=== PATIENT | male | born 1980 | race Caucasian/White ===

== ENCOUNTER 2018-09-17 11:27 | Emergency (ER) | payer MEDICAID ==
[~2018-09-17] VITALS: Ht 167.6 cm; Wt 81.6 kg
--- NOTE | 2018-09-17 11:31 | NUR ---
PT AMBULATES TO BED 2
[2018-09-17 11:34] VITALS: BP 133/78
--- NOTE | 2018-09-17 11:41 | NUR ---
XRAY AT BEDSIDE
--- NOTE | 2018-09-17 11:42 | NUR ---
PT. CAME INTO THE ED W/ C/O RIGHT HAND PAIN S/P MECHANICAL FALL YESTERDAY AND ATTEMPTED TO BREAK FALL WITH HANDS OUT DISCOLORATION AND SWELLING NOTED TO RT HAND . 07/04 PAIN THAT IS NONRADIATING. ER MD MADE AWARE. FAMILY AT BEDSIDE. WILL CONTINUE TO MONITOR.
[2018-09-17 12:13] VITALS: BP 133/78
== END 2018-09-17 12:12 | disposition home or self-care (01) ==
LOC: MED 11:27
DX: S63.91XA Sprain of unspecified part of right wrist and hand, initial encounter (principal); J45.909 Unspecified asthma, uncomplicated; Z88.8 Allergy status to other drugs, medicaments and biological substances; W18.30XA Fall on same level, unspecified, initial encounter; Y93.89 Activity, other specified; Y92.89 Other specified places as the place of occurrence of the external cause; Y99.8 Other external cause status
CPT/HCPCS: 73130; 99283

== ENCOUNTER 2019-05-15 06:10 | Emergency (ER) | payer MEDICAID, OTHER ==
[~2019-05-15] VITALS: Ht 167.6 cm; Wt 81.6 kg
[2019-05-15 06:16] VITALS: BP 118/76
[2019-05-15] MEDS ORDERED: predniSONE 20 MG TAB PO ONE (06:20)
[2019-05-15] MEDS ORDERED: ALBUTEROL SULFATE/IPRATROPIU 3 ML SOL IH ONE (06:20)
[2019-05-15] MEDS ORDERED: ALBUTEROL 0.083% 2.5 MG/3 ML NEBU INH ONE (06:20)
--- NOTE | 2019-05-15 06:21 | NUR ---
PT TAKEN TO BED 1
--- NOTE | 2019-05-15 06:32 | NUR ---
Respiratory Therapist at bedside for respiratory intervention
--- NOTE | 2019-05-15 06:37 | NUR ---
Note rioone in EDM - 05/15/19 at 0641 by MEDDI 38 Y/O MALE BIB SELF. PT STATES HX ASTHMA. ASTHMA STARTED FLARING UP AT 20:00 LAST NIGHT. HE HAS INHALER BUT OUT OF NEBULIZER MEDS AT HOME. NO RELIEF FROM INHALER AT THIS TIME. O2SAT 98% @ RA. AUDIBLE BILAT EXPIRATORY WHEEZING. SOB/DYSPNEA PRESENT. VSS. HX: ASTHMA
--- NOTE | 2019-05-15 06:41 | NUR ---
38 Y/O MALE BIB SELF. PT STATES HX ASTHMA. ASTHMA STARTED FLARING UP AT 20:00 LAST NIGHT. HE HAS INHALER BUT OUT OF NEBULIZER MEDS AT HOME. NO RELIEF FROM INHALER AT THIS TIME. O2SAT 98% @ RA. AUDIBLE BILAT EXPIRATORY WHEEZING. SOB/DYSPNEA PRESENT. VSS. HE ALSO RATES A 5/10 OF SORE LEFT CHEST/SIDE PAIN. HX: ASTHMA
--- NOTE | 2019-05-15 07:07 | NUR ---
PATIENT RATES 0/10 PAIN AND THAT THE SIDE JUST FEELS "SORE"
--- NOTE | 2019-05-15 07:31 | NUR ---
Pt report given to AMI DAVIS. Transfer of care at this time.
--- NOTE | 2019-05-15 07:32 | NUR ---
PT AAO X4. FULL CLEAR SPEECH. 02 SATURATION 98% RA. EVEN AND UNLABORED BREATHING, CLEAR EQUAL DAT LUNGS UPON AUSCULTATION. NO SIGNS AND SYMPTOMS OF DISTRESS NOTED.
--- NOTE | 2019-05-15 07:40 | NUR ---
DR BUSTILLO AT BEDSIDE FOR PT EVALUATION
[2019-05-15 08:16] VITALS: BP 120/78
--- NOTE | 2019-05-15 08:16 | NUR ---
Patient discharged with v/s stable. Written and verbal after care instructions given and explained. Patient alert, oriented and verbalized understanding of instructions. Ambulatory with steady gait. All questions addressed prior to discharge. ID band removed. Patient advised to follow up with PMD. Rx of PREDNISONE, ALBUTEROL SULFATE 0.083% DESTINY, PREMIER VALUE CETIRIZINE HYDROCHLORIDE given. Patient educated on indication of medication including possible reaction and side effects. Opportunity to ask questions provided and answered.
== END 2019-05-15 08:16 | disposition home or self-care (01) ==
LOC: MED 06:10
DX: J45.901 Unspecified asthma with (acute) exacerbation (principal); Z88.8 Allergy status to other drugs, medicaments and biological substances
CPT/HCPCS: 94640; 99284; J7512; J7613; J7620; 99283

== ENCOUNTER 2019-09-22 04:02 | Emergency (ER) | payer OTHER ==
[~2019-09-22] VITALS: Ht 167.6 cm; Wt 81.6 kg
[2019-09-22 04:15] VITALS: BP 113/79
--- NOTE | 2019-09-22 04:15 | NUR ---
TO BED # 04 AMBULATORY
--- NOTE | 2019-09-22 04:31 | NUR ---
Dr. Echavarria examining patient.
--- NOTE | 2019-09-22 04:33 | NUR ---
Harsh max in [facility] - 09/22/19 at 0516 by [facility] Respiratory Therapist at bedside for respiratory intervention.
[2019-09-22] MEDS ORDERED: methylPREDNISolone SS 125 MG/2 ML VIAL IM ONE (04:35)
[2019-09-22] MEDS ORDERED: ALBUTEROL SULFATE/IPRATROPIU 3 ML SOL IH ONE (04:35)
--- NOTE | 2019-09-22 04:35 | NUR ---
39 YO M BIB SELF AND C/O ASTHMA ATTACK X 2 DAYS EXASPERATED BY WET, PRODUCTIVE COUGH. PT HAS HX OF ASTHMA. USING ALBUTEROL INH AND NEBULIZER AT HOME WITH NO RELIEF. AUDIBLE WHEEZING HEARD THROUGHOUT. DENIES PAIN OF ANY KIND AT THIS TIME. SKIN NORMAL FOR ETHNICITY, DRY, WARM.
--- NOTE | 2019-09-22 04:42 | NUR ---
MEDICATED WITH 125 MG IM SOLUMEDROL FOR ASTHMA. WILL REASSESS.
--- NOTE | 2019-09-22 04:42 | NUR ---
[employer] AT BEDSIDE FOR BREATHING TX.
--- NOTE | 2019-09-22 05:00 | NUR ---
REPORTS RELIEF. BREATHING EVEN, UNLABORED. SPO2 100% ON RA. LUNGS CTA.
[2019-09-22] MEDS ORDERED: RIVA20TA PO (05:21)
[2019-09-22] MEDS ORDERED: HYDR-5092 PO (05:24)
--- NOTE | 2019-09-22 05:24 | NUR ---
PT STATES NO DIFFICULTY BREATHING/SOB AT THIS TIME. RR EVEN AND UNLABORED. O2 SAT 98% RA
--- NOTE | 2019-09-22 05:24 | NUR ---
Patient discharged with v/s stable. Written and verbal after care instructions given and explained. Patient alert, oriented and verbalized understanding of instructions. Ambulatory with steady gait. All questions addressed prior to discharge. ID band removed. Patient advised to follow up with PMD. Rx of ALBUTEROL SULFATE, ALBUTEROL, AND PREDNISONE. given. Patient educated on indication of medication including possible reaction and side effects. Opportunity to ask questions provided and answered.
[2019-09-22 05:25] VITALS: BP 113/79
== END 2019-09-22 05:24 | disposition home or self-care (01) ==
LOC: MED 04:02
DX: J45.901 Unspecified asthma with (acute) exacerbation (principal); Z88.8 Allergy status to other drugs, medicaments and biological substances
CPT/HCPCS: 94640; 96372; 99283; J2930; J7620

== ENCOUNTER 2019-11-25 10:38 | Emergency (ER) | payer OTHER ==
[~2019-11-25] VITALS: Ht 167.6 cm; Wt 68.0 kg
[2019-11-25 10:41] VITALS: BP 141/75
--- NOTE | 2019-11-25 10:43 | NUR ---
TRIAGE COMPLETE. DR LUGO AWARE OF PT. TO LOBBY AWAITNG BED IN ED.
--- NOTE | 2019-11-25 11:08 | NUR ---
PT NOW C/O CHEST PAIN. EKG ORDERED PER PROTOCOL.
--- NOTE | 2019-11-25 11:59 | NUR ---
CALLED AT 1200, NO ANSWER FROM LOBBY OR OUTSIDE
--- NOTE | 2019-11-25 13:28 | NUR ---
CALLED AT 1328, NO ANSWER
--- NOTE | 2019-11-25 13:28 | NUR ---
PATIENT LEFT WITHOUT BEING SEEN BY DR. PAINTING. NO FURTHER CARE PROVIDED FOR PATIENT.
== END 2019-11-25 12:00 | disposition left against medical advice (07) ==
LOC: MED 10:38
DX: R06.02 Shortness of breath (principal); Z53.21 Procedure and treatment not carried out due to patient leaving prior to being seen by health care provider
CPT/HCPCS: 93005

== ENCOUNTER 2021-05-16 06:04 | Emergency (ER) | payer OTHER ==
[~2021-05-16] VITALS: Ht 167.6 cm; Wt 83.9 kg
[2021-05-16 06:09] VITALS: BP 130/72
--- NOTE | 2021-05-16 06:18 | NUR ---
PATIENT AMBULATED TO THE BATHROOM FOR URINE COLLECTION
--- NOTE | 2021-05-16 06:52 | NUR ---
PATIENT LEFT WITHOUT BEING SEEN BY DR. BUSTILLO. NO FURTHER CARE PROVIDED FOR PATIENT.
== END 2021-05-16 06:52 | disposition left against medical advice (07) ==
LOC: MED 06:04
DX: F10.10 Alcohol abuse, uncomplicated (principal); T40.7X5A Adverse effect of cannabis (derivatives), initial encounter; T40.5X5A Adverse effect of cocaine, initial encounter; Z53.21 Procedure and treatment not carried out due to patient leaving prior to being seen by health care provider; Y92.89 Other specified places as the place of occurrence of the external cause
CPT/HCPCS: 93005; 99281

== ENCOUNTER 2022-08-05 14:45 | Emergency (ER) | payer OTHER ==
[~2022-08-05] VITALS: Ht 172.7 cm; Wt 74.8 kg
[2022-08-05 14:47] VITALS: BP 113/71
--- NOTE | 2022-08-05 15:06 | NUR ---
41 y/o male bib self with c/o SOB x 3 days. Patient says he has episodes of SOB where he has to go to the ER for treatment every couple of months. Patient says inhaler and nebulizer have not relieved symptoms. Denies fever or chills. Medical History: Asthma ALLERGY: THEOPHYLLINE
[2022-08-05] MEDS ORDERED: methylPREDNISolone SS 125 MG in WATER STERILE 2 ML IM ONE (15:10)
[2022-08-05] MEDS ORDERED: ALBUTEROL SULFATE/IPRATROPIU 3 ML SOL IH ONE (15:10)
--- NOTE | 2022-08-05 15:22 | NUR ---
RT at bedside.
[2022-08-05] MEDS ORDERED: methylPREDNISolone SS 125 MG/2 ML VIAL ONE (15:30)
[2022-08-05] MEDS ORDERED: WATER STERILE 10 ML MC ONE (15:30)
--- NOTE | 2022-08-05 15:58 | NUR ---
[employer] re-evaluating patient at bedside.
[2022-08-05] MEDS ORDERED: PRED20TA5 PO ×2 (16:01→16:05)
[2022-08-05] MEDS ORDERED: PRON INH (16:01)
[2022-08-05] MEDS ORDERED: ALBU0.0912 IH (16:01)
[2022-08-05 16:22] VITALS: BP 127/67
--- NOTE | 2022-08-05 16:22 | NUR ---
Patient discharged with v/s stable. Written and verbal after care instructions given. Patient alert, oriented and verbalized understanding of instructions. Ambulatory with steady gait. All questions addressed prior to discharge. ID band removed. Patient advised to follow up with PMD. Rx of Albuterol Sulfate, Albuterol Sulfate and Prednisone given. Opportunity to ask questions provided and answered.
--- NOTE | 2022-08-05 16:39 | NUR ---
The patient's care was reviewed and supervised by ED Agency Nurse 8, RN, RN.
== END 2022-08-05 16:22 | disposition home or self-care (01) ==
LOC: MED 14:45
DX: J45.901 Unspecified asthma with (acute) exacerbation (principal)
CPT/HCPCS: 94640; 96372; 99283; J2930

== ENCOUNTER 2022-08-24 09:28 | Emergency (ER) | payer OTHER ==
[~2022-08-24] VITALS: Ht 167.6 cm; Wt 86.4 kg
[~2022-08-24 09:28] MED LIST: ALBU0.0912 IH; PRED20TA5 PO; PRON INH
[2022-08-24 09:42] VITALS: BP 118/82
--- NOTE | 2022-08-24 10:02 | NUR ---
41 y/o male bib self with c/o SOB x 2 days. Patient has a non-productive cough. Patient took a nebulizer treatment about 1 hour ago. Denies any sick contacts. Denies pain, fever or discomfort. Patient states "his asthma flares up every couple of months." Medical History:Asthma NKDA
--- NOTE | 2022-08-24 10:02 | NUR ---
Dr. Dixon evaluating patient at bedside.
[2022-08-24] MEDS ORDERED: IPRATROPIUM 0.02% 0.5 MG/2.5 ML NEBU INH ONE (10:05)
[2022-08-24] MEDS ORDERED: ALBUTEROL 0.083% 2.5 MG/3 ML NEBU INH ONE (10:05)
[2022-08-24] MEDS ORDERED: ALBU0.0912 INH (10:08)
[2022-08-24] MEDS ORDERED: PRED20TA5 PO (10:08)
--- NOTE | 2022-08-24 10:31 | NUR ---
RT at bedside.
[2022-08-24 11:10] VITALS: BP 131/78
--- NOTE | 2022-08-24 11:10 | NUR ---
Patient discharged with v/s stable. Written and verbal after care instructions given. Patient alert, oriented and verbalized understanding of instructions. Ambulatory with steady gait. All questions addressed prior to discharge. ID band removed. Patient advised to follow up with PMD. Rx of Albuterol and Prednisone given. Opportunity to ask questions provided and answered.
--- NOTE | 2022-08-24 11:25 | NUR ---
The patient's care was reviewed and supervised by [place] [facility] ED, RN.
== END 2022-08-24 11:10 | disposition home or self-care (01) ==
LOC: MED 09:28
DX: J45.901 Unspecified asthma with (acute) exacerbation (principal)
CPT/HCPCS: 99283; J7613; J7644; 94640

== ENCOUNTER 2023-12-29 12:02 | Emergency (ER) | payer OTHER ==
[~2023-12-29] VITALS: Ht 167.6 cm; Wt 86.2 kg
[~2023-12-29 12:02] MED LIST changes: +ALBU0.0912 INH
[2023-12-29 12:13] VITALS: BP 137/74; PULSE 75; RESP 16; TEMP 96.8; O2SAT 97
[2023-12-29 12:59] LABS: BASOPHILS # (AUTO) 0.1 K/uL (0.00-0.22); BASOPHILS % (AUTO) 1.4 % (0.0-2.0); EOSINOPHILS # (AUTO) 0.2 K/uL (0-0.4); HEMOGLOBIN 16.8 g/dL (12.0-18.0); LYMPHOCYTES % (AUTO) 21.8 % (20.5-51.1); MEAN CORPUSCULAR HEMOGLOBIN 29 pg (27-31); MEAN CORPUSCULAR HGB CONC 35 g/dL (33-37); MONOCYTES # (AUTO) 0.4 K/uL (0.8-1.0); MONOCYTES % (AUTO) 9.3 % (1.7-9.3); NEUTROPHILS % (AUTO) 63.5 % (42.2-75.2); PLATELET COUNT (AUTO) 216 K/uL (140-450); RED BLOOD CELL COUNT(AUTO) 5.71 MIL/uL (4.20-6.10); WHITE BLOOD COUNT (AUTO) 4.7 K/uL (4.8-10.8)
[2023-12-29 13:19] LABS: ALBUMIN 3.9 g/dL (3.4-5.0); ANION GAP 11.9 (8-16); CALCIUM 8.9 mg/dL (8.5-10.1); CARBON DIOXIDE 28.1 mmol/L (21-32); TOTAL BILIRUBIN 1.2 mg/dL (0.0-1.0)
[2023-12-29 13:52] LABS: APPEARANCE,URINE CLEAR (CLEAR); BILIRUBIN,URINE NEGATIVE (NEGATIVE); BLOOD, URINE NEGATIVE (NEGATIVE); COLOR,URINE YELLOW (YELLOW); LEUKOCYTE ESTERASE ,URINE NEGATIVE (NEGATIVE); NITRITE, URINE NEGATIVE (NEGATIVE); PROTEIN,URINE NEGATIVE (NEGATIVE); UGLUCOSE NEGATIVE (NEGATIVE); UROBILINOGEN,URINE 0.2 EU/dL (0.2 - 1)
[2023-12-29] MEDS ORDERED: IBUP-2213 PO (14:01)
[2023-12-29 14:30] VITALS: BP 118/77; PULSE 75; RESP 16; TEMP 96.8; O2SAT 97
== END 2023-12-29 14:31 | disposition home or self-care (01) ==
LOC: MED 12:02
DX: R10.32 Left lower quadrant pain (principal); R35.0 Frequency of micturition; J45.909 Unspecified asthma, uncomplicated; Z79.899 Other long term (current) drug therapy
CPT/HCPCS: 36415; 80053; 81003; 83690; 85025; 99284

== ENCOUNTER 2024-07-10 15:08 | Emergency (ER) | payer OTHER ==
[~2024-07-10] VITALS: Ht 167.6 cm; Wt 83.9 kg
[~2024-07-10 15:08] MED LIST changes: +IBUP-2213 PO
[2024-07-10 15:38] VITALS: BP 120/62; PULSE 82; RESP 18; TEMP 98; O2SAT 98
[2024-07-10] MEDS: NACL 0.9% 1,000 ML IV ONE (16:25)
[2024-07-10] MEDS: ONDANSETRON 4 MG/2 ML VIAL IVP ONE (16:28)
[2024-07-10] MEDS ORDERED: LORazepam 2 MG/ML VIAL ONE (16:30)
[2024-07-10] MEDS: LORazepam 2 MG/ML VIAL IVP ONE (16:34)
[2024-07-10] MEDS ORDERED: ATA25 PO (17:06)
[2024-07-10] MEDS ORDERED: ONDA8TAB87 PO (17:06)
[2024-07-10 17:20] VITALS: BP 118/63; PULSE 82; RESP 18; TEMP 36.66960; O2SAT 98
[2024-07-10] MEDS ORDERED: ALBU0.0912 INH (17:20)
== END 2024-07-10 17:20 | disposition home or self-care (01) ==
LOC: MED 15:08
DX: R11.2 Nausea with vomiting, unspecified (principal); F41.9 Anxiety disorder, unspecified; R00.2 Palpitations; R42 Dizziness and giddiness; J45.909 Unspecified asthma, uncomplicated; F17.210 Nicotine dependence, cigarettes, uncomplicated; Z98.890 Other specified postprocedural states; Z79.899 Other long term (current) drug therapy; Z88.8 Allergy status to other drugs, medicaments and biological substances
CPT/HCPCS: 96361; 96374; 96375; 99284; J2060; J2405; J7030